=== PATIENT | male | born 1940 | race Two or more races ===

== ENCOUNTER 2024-07-07 01:13 | Inpatient (IN) | payer MEDICARE, MEDICAID ==
[~2024-07-07] VITALS: Ht 170.2 cm; Wt 70.5 kg
[~2024-07-07 01:13] MED LIST: APIX2.5T PO; LOSA-381 PO; NIFE10CA50 PO; PARO10TA89 PO
[2024-07-07 01:52] LABS: BASOPHILS % (AUTO) 0.4 % (0.0-2.0); EOSINOPHILS % (AUTO) 1.7 % (1.0-6.0); HEMATOCRIT 45.1 % (41-53); HEMOGLOBIN 14.9 g/dL (13.5-17.5); LYMPHOCYTES # (AUTO) 1.6 K/uL (1.0-4.8); LYMPHOCYTES % (AUTO) 32.2 % (22.0-44.0); MEAN CORPUSCULAR HEMOGLOBIN 31.5 pg (26.0-34.0); MEAN CORPUSCULAR HGB CONC 33.1 G/dL (31.0-37.0); MEAN CORPUSCULAR VOLUME 95 fL (80-100); MONOCYTES # (AUTO) 0.5 K/uL (0.1-1.0); MONOCYTES % (AUTO) 10.7 % (2.0-9.0); NEUTROPHILS # (AUTO) 2.8 K/uL (1.8-7.7); PLATELET COUNT (AUTO) 211 K/uL (150-450); RED BLOOD CELL COUNT(AUTO) 4.73 MIL/uL (4.50-5.90); RED CELL DISTRIBUTION WIDTH 13.9 % (11.5-14.5)
[2024-07-07 01:53] LABS: COVID AG,FIA SOURCE NASAL SWAB
[2024-07-07 02:11] LABS: ANION GAP 7 mmol/L (8-16); CALCIUM, TOTAL 9.6 mg/dL (8.8-10.5); CARBON DIOXIDE 30 mmol/L (22-29); CHLORIDE 103 mmol/L (98-107); CREATININE 0.93 mg/dL (0.60-1.30); GLOMERULAR FILTR. RATE CALC > 60 mL/min (>60); GLUCOSE,RANDOM 103 mg/dL (70-110); POTASSIUM 3.4 mmol/L (3.5-5.1); SODIUM SERUM 140 mmol/L (136-145); UREA NITROGEN, BLOOD 15 mg/dL (7-18)
[2024-07-07] MEDS: MAGNESIUM CITRATE [LEMON] 300 ML ORAL SOLUTION PO ONE (02:24)
[2024-07-07 02:36] LABS: SARS-COV2 (COVID) ANTIGEN,FIA Positive (Negative)
[2024-07-07 02:43] LABS: ALCOHOL, BLOOD (SERUM) < 3 mg/dL (0-10)
[2024-07-07] MEDS ORDERED: ALBUTEROL SULFATE 2.5 MG/0.5 ML NEB SOLUTION NEB PRN (08:15)
[2024-07-07] MEDS ORDERED: ACETAMINOPHEN 325 MG TABLET PO PRN (08:15)
[2024-07-07] MEDS ORDERED: ZOLPIDEM TARTRATE 5 MG TABLET PO PRN (08:15)
[2024-07-07] MEDS ORDERED: POTASSIUM CHL 10 MEQ/WATER 50 ML IV PRN (08:30)
[2024-07-07] MEDS ORDERED: APIX5TAB PO (08:35)
[2024-07-07] MEDS: POTASSIUM CHLORIDE 20 MEQ ER TABLET PO PRN (09:56)
[2024-07-07] MEDS: CARVEDILOL 6.25 MG TABLET PO SCH (09:56)
[2024-07-07] MEDS: APIXABAN 5 MG TABLET PO SCH (09:57)
[2024-07-07] MEDS: FAMOTIDINE 20 MG TABLET PO SCH (09:57)
[2024-07-07 10:05] LABS: APPEARANCE,URINE HAZY (CLEAR); BILIRUBIN,URINE NEGATIVE (NEGATIVE); COLOR,URINE LIGHT YELLOW (YELLOW); GLUCOSE, URINE (UA) NEGATIVE (NEGATIVE); KETONES,URINE TRACE mg/dL (NEGATIVE); LEUKOCYTE ESTERASE ,URINE NEGATIVE (NEGATIVE); NITRATE,URINE NEGATIVE (NEGATIVE); OCCULT BLOOD,URINE NEGATIVE (NEGATIVE); PH,URINE 7.5 (5.0-8.0); PROTEIN,URINE NEGATIVE (NEGATIVE); SPECIFIC GRAVITIY, URINE 1.009 (1.003-1.030); UROBILINOGEN,URINE <=1.0 mg/dL (<=1.0)
[2024-07-07 11:32] VITALS: BP 141/84; PULSE 63; RESP 19; TEMP 98.1; O2SAT 100
[2024-07-07 13:49] LABS: PH,URINE DRUG SCREEN 7.5 (5.0-8.0)
[2024-07-07 14:16] LABS: ALCOHOL, URINE DRUG SCREEN NEGATIVE (NEGATIVE); AMPHET/METH SCREEN,URINE NEGATIVE (NEGATIVE); BARBITURATE SCREEN, URINE NEGATIVE (NEGATIVE); BENZODIAZEPINES SCREEN,URINE NEGATIVE (NEGATIVE); CANNABINOID SCREEN,URINE NEGATIVE (NEGATIVE); COCAINE SCREEN,URINE NEGATIVE (NEGATIVE); METHADONE SCREEN, URINE NEGATIVE (NEGATIVE); OPIATE SCREEN,URINE NEGATIVE (NEGATIVE); PHENCYCLIDINE SCREEN,URINE NEGATIVE (NEGATIVE)
[2024-07-07] MEDS ORDERED: HEPARIN SODIUM,PORCINE 5,000 UNITS/ML VIAL SQ SCH (16:00)
[2024-07-07 16:11] VITALS: BP 135/75; PULSE 58; RESP 18; TEMP 98.1; O2SAT 99
[2024-07-07] MEDS: MAGNESIUM HYDROXIDE SUSPENSION 30 ML UDCUP PO PRN (16:20)
[2024-07-07 19:17] VITALS: BP 144/82; PULSE 67; RESP 18; TEMP 97.9; O2SAT 99
[2024-07-07] MEDS: MIRTAZAPINE 15 MG TABLET PO SCH (21:04)
[2024-07-08] VITALS (8 sets, daily range): BP systolic 122–167; BP diastolic 61–83; PULSE 39–55; RESP 16–18; TEMP 97.5–98.1; O2SAT 99–100
[2024-07-08 07:44] LABS: ANION GAP 4 mmol/L (8-16); CARBON DIOXIDE 31 mmol/L (22-29); CHLORIDE 106 mmol/L (98-107); CREATININE 0.96 mg/dL (0.60-1.30); GLOMERULAR FILTR. RATE CALC > 60 mL/min (>60); GLUCOSE,RANDOM 86 mg/dL (70-110); POTASSIUM 4.5 mmol/L (3.5-5.1); SODIUM SERUM 141 mmol/L (136-145); UREA NITROGEN, BLOOD 18 mg/dL (7-18)
[2024-07-08] MEDS: PARoxetine HCL 20 MG TABLET PO SCH (08:57)
[2024-07-08] MEDS ORDERED: MAGNESIUM HYDROXIDE SUSPENSION 30 ML UDCUP PO PRN (10:45)
[2024-07-08] MEDS: DOCUSATE SODIUM 100 MG CAPSULE PO SCH (12:19)
[2024-07-08] MEDS: AmLODIPine BESYLATE 5 MG TABLET PO SCH (21:19)
[2024-07-09] VITALS (9 sets, daily range): BP systolic 102–150; BP diastolic 51–91; PULSE 30–61; RESP 18; TEMP 97.6–98.3; O2SAT 98–100
[2024-07-10] VITALS (7 sets, daily range): BP systolic 120–161; BP diastolic 53–84; PULSE 44–64; RESP 16–18; TEMP 98–98.4; O2SAT 99–100
[2024-07-10 08:34] LABS: TROPONIN I-HIGH SENSITIVITY 33 ng/L (<76)
[2024-07-10 08:53] LABS: ANION GAP 8 mmol/L (8-16); CALCIUM, TOTAL 9.2 mg/dL (8.8-10.5); CARBON DIOXIDE 27 mmol/L (22-29); CHLORIDE 103 mmol/L (98-107); CREATININE 0.77 mg/dL (0.60-1.30); GLOMERULAR FILTR. RATE CALC > 60 mL/min (>60); GLUCOSE,RANDOM 72 mg/dL (70-110); SODIUM SERUM 138 mmol/L (136-145); UREA NITROGEN, BLOOD 13 mg/dL (7-18)
[2024-07-10] MEDS ORDERED: MAGNESIUM HYDROXIDE SUSPENSION 30 ML UDCUP PO PRN (18:30)
[2024-07-11 00:17] VITALS: BP 110/67; PULSE 58; RESP 18; TEMP 98; O2SAT 98
[2024-07-11 06:04] VITALS: BP 169/83; PULSE 47; RESP 16; TEMP 97.8; O2SAT 100
[2024-07-11 08:48] VITALS: BP 156/59; PULSE 69; RESP 18; TEMP 97.8; O2SAT 100
[2024-07-11 11:09] VITALS: BP 103/50; PULSE 86; RESP 18; TEMP 98.9; O2SAT 94
[2024-07-11 12:00] VITALS: BP 145/75; PULSE 79; RESP 18; TEMP 98; O2SAT 100
[2024-07-11] MEDS ORDERED: MIRT-89 PO (14:08)
[2024-07-11] MEDS ORDERED: APIX5TAB PO (14:08)
[2024-07-11] MEDS ORDERED: PARO-37 PO (14:08)
[2024-07-11] MEDS ORDERED: AMLO-257 PO (14:08)
[2024-07-11] MEDS ORDERED: LOSA-381 PO (14:08)
== END 2024-07-11 15:23 | disposition home or self-care (01) | DRG 178 ==
LOC: EMS 01:13 → EDH 08:34 → 6S 11:22 → 5S 07-08 20:25
PROVIDERS: ADMIT Internal Medicine; ATTEND Internal Medicine
DX: U07.1 COVID-19 (principal); I48.20 Chronic atrial fibrillation, unspecified; R45.851 Suicidal ideations; E87.6 Hypokalemia; F32.9 Major depressive disorder, single episode, unspecified; I10 Essential (primary) hypertension; R62.7 Adult failure to thrive; K59.00 Constipation, unspecified; F41.9 Anxiety disorder, unspecified; F22 Delusional disorders; K40.90 Unilateral inguinal hernia, without obstruction or gangrene, not specified as recurrent; Z78.9 Other specified health status; Z95.3 Presence of xenogenic heart valve
CPT/HCPCS: 71045; 76856; 80048; 80307; 81003; 83735; 83880; 84439; 84443; 84484; 85025; 93005; 93306; 97162; 99285; G0480; 36415-L1; 36415-TC